=== PATIENT | female | born 1980 | race Two or more races ===

== ENCOUNTER 2021-07-15 10:01 | Outpatient (CLI) | payer OTHER | END 2021-07-15 14:42 | disposition home or self-care (01) | LOC: LAB 10:01 | PROVIDERS: ATTEND Internal Medicine Cardiovascular Disease | DX: J44.9 Chronic obstructive pulmonary disease, unspecified (principal); J11.1 Influenza due to unidentified influenza virus with other respiratory manifestations; I10 Essential (primary) hypertension; E11.9 Type 2 diabetes mellitus without complications; E03.9 Hypothyroidism, unspecified; E78.2 Mixed hyperlipidemia; D64.0 Hereditary sideroblastic anemia; E55.9 Vitamin D deficiency, unspecified ==

== ENCOUNTER 2021-11-06 08:01 | Outpatient (CLI) | payer OTHER | END 2021-11-06 08:21 | disposition home or self-care (01) | LOC: LAB 08:01 | PROVIDERS: ATTEND Internal Medicine Cardiovascular Disease | DX: B20 Human immunodeficiency virus [HIV] disease (principal); E11.9 Type 2 diabetes mellitus without complications; E03.9 Hypothyroidism, unspecified; E78.2 Mixed hyperlipidemia; E55.9 Vitamin D deficiency, unspecified; A53.9 Syphilis, unspecified; A64 Unspecified sexually transmitted disease; I10 Essential (primary) hypertension ==

== ENCOUNTER 2022-07-15 19:18 | Emergency (ER) | payer OTHER ==
[~2022-07-15] VITALS: Ht 157.5 cm; Wt 63.5 kg
[2022-07-15] MEDS ORDERED: MEDROLPACK PO (21:02)
== END 2022-07-15 21:12 | disposition home or self-care (01) ==
LOC: ER 19:18
DX: R21 Rash and other nonspecific skin eruption (principal)

== ENCOUNTER → 2024-04-04 | Emergency (ER) | payer OTHER ==
[~2024-04-04] VITALS: Ht 160 cm; Wt 65.3 kg
[~2024-04-04] MED LIST: CEFTRIAXONE SODIUM 1,000 MG VIAL IM STA; CEFTRIAXONE SODIUM 1,000 MG VIAL ONE; MEDROLPACK PO; TETANUS & DIPHTHERIA TOX,ADULT 0.5 ML VIAL IM STA; TETANUS DIPHTHERIA TOX. ADSOR 5 ML VIAL IM ONE
== END | disposition home or self-care (01) ==
LOC: ER 18:50
DX: S61.251A Open bite of left index finger without damage to nail, initial encounter (principal); W54.0XXA Bitten by dog, initial encounter; Y93.89 Activity, other specified; Y92.89 Other specified places as the place of occurrence of the external cause; Y99.9 Unspecified external cause status

== ENCOUNTER 2024-05-16 10:29 | Outpatient (CLI) | payer OTHER ==
[~2024-05-16 10:29] MED LIST changes: -CEFTRIAXONE SODIUM 1,000 MG VIAL IM STA; -CEFTRIAXONE SODIUM 1,000 MG VIAL ONE; -TETANUS & DIPHTHERIA TOX,ADULT 0.5 ML VIAL IM STA; -TETANUS DIPHTHERIA TOX. ADSOR 5 ML VIAL IM ONE
== END 2024-05-16 10:38 | disposition home or self-care (01) ==
LOC: MAMO-SONO 10:29
PROVIDERS: ATTEND Specialist
DX: N63 Unspecified lump in breast (principal); Z12.31 Encounter for screening mammogram for malignant neoplasm of breast